=== PATIENT | female | born 1985 | race American Indian/Alaskan Native ===

== ENCOUNTER 2017-02-10 09:33 | Emergency (ER) | payer BC ==
[2017-02-10 09:41] VITALS: BMI 30.6
[2017-02-10 09:46] VITALS: BP 126/80; PULSE 78; RESP 18; TEMP 98.5; O2SAT 98
--- NOTE | 2017-02-10 09:55 | ED PDOC ---
Arrival/HPI - General Historian: Patient - History of Present Illness Time/Duration: Other (last night) Symptom Onset: Gradual Symptom Course: Improving Quality: Other (no pain) - General Chief Complaint: Abnormal Skin Integrity Time Seen by Provider: 02/10/17 09:45 - History of Present Illness Narrative History of Present Illness (Text): 02/10/17 09:51 31-year-old female presents today with swelling of the left lower lip since last night. Patient states she noticed that the lip was swelling last night and she went to sleep thinking that it would get better. Patient states when she woke up the lip was still swollen. Patient states just prior to arrival the swelling in the lips started to go down. Patient denies difficulty breathing or swallowing. Denies trismus or drooling. Denies fevers or chills. She denies new soaps lotions or detergents per fumes or medications. Patient states she did not eat anything out of the ordinary. Patient denies rash. She denies trauma or injury. No other complaints. no medications have been taken at home. (Anamaria Warner) Past Medical History - Provider Review Nursing Documentation Reviewed: Yes - Travel History Have you recently traveled outside [place] w/in the past 3 mons?: No - Psychiatric Hx Substance Use: No Family/Social History - Physician Review Nursing Documentation Reviewed: Yes Family/Social History: Unknown Family HX Smoking Status: Never Smoked Hx Alcohol Use: No Hx Substance Use: No Allergies/Home Meds Allergies/Adverse Reactions: Allergies No Known Allergies Allergy (Verified 02/10/17 09:41) Review of Systems - Review of Systems Constitutional: absent: Fatigue, Fevers Respiratory: absent: SOB, Cough Cardiovascular: absent: Chest Pain, Palpitations Gastrointestinal: absent: Abdominal Pain, Nausea, Vomiting Musculoskeletal: absent: Arthralgias Skin: Rash, Other (left sided lower lip swelling) Neurological: absent: Headache, Dizziness Physical Exam Vital Signs Reviewed: Yes Temperature: Afebrile Blood Pressure: Normal Pulse: Regular Respiratory Rate: Normal Appearance: Positive for: Well-Appearing, Non-Toxic, Comfortable Pain Distress: None Mental Status: Positive for: Alert and Oriented X 3 - Systems Exam Head: Present: Atraumatic, Swelling (+ small amount of edema noted to the left lower lip; no erythema; non tender. no rash) Pupils: Present: PERRL Extroacular Muscles: Present: EOMI Conjunctiva: Present: Normal Mouth: Present: Moist Mucous Membranes Pharnyx: Present: Normal. No: ERYTHEMA, EXUDATE, TONSILS ENLARGED, Peritonsilar Swelling, Uvular Deviation, Muffled/Hoarse Voice, Strider, Soft Palate/Uvular Edema Nose (External): Present: Atraumatic Nose (Internal): Present: Normal Inspection Neck: Present: Normal Range of Motion Respiratory/Chest: Present: Clear to Auscultation, Good Air Exchange. No: Respiratory Distress, Accessory Muscle Use, Wheezes, Retracting, Rhonchi, Tachypneic Cardiovascular: Present: Regular Rate and Rhythm, Normal S1, S2. No: Murmurs Neurological: Present: GCS=15 Skin: Present: Warm, Dry, Normal Color. No: Rashes Psychiatric: Present: Alert, Oriented x 3 Vital Signs Temp Pulse Resp BP Pulse Ox 02/10/17 09:41 98.5 F 78 18 126/80 98 Medical Decision Making ED Course and Treatment: 02/10/17 09:54 Patient is nontoxic well-appearing in no distress with stable vital signs Lungs are clear to auscultation bilaterally there is no wheezing noted. The airway is patent. There is minimal swelling to the left side of the lower lip. Benadryl 50 by mouth Prednisone 60 by mouth Pepcid 20 mg by mouth pt with resolving left sided lower lip swelling; no signs of airway compromise. will d/c home to f/u with PMD and senior warehouse clerk/executive administrative asst. I advised taking Benadryl every 6 hours as needed. as well as prednisone daily x4 days. Patient was advised to take Pepcid daily. Patient was advised to follow -up with a executive administrative asst/senior warehouse clerk. Advised patient to follow up with primary care physician within the next 2 days and return if symptoms worsen persist or if new symptoms develop Patient verbalizes understanding of discharge instructions and need for immediate followup. Impression :Allergic reaction Benadryl every 6 hours as needed for itch Prednisone once daily x4 days Pepcid one tablet daily Follow up with the primary care physician tomorrow. Follow-up with the executive administrative asst/senior warehouse clerk within the next 2 days. Return if symptoms worsen persist or if new symptoms develop: Shortness of breath, feeling of throat closing, difficulty speaking or any other concerning symptoms develop (Azoia,Anamaria T) I was available for consultation during PA evaluation. The chart was reviewed by me, and I agree with disposition. The documented history was done by the physician visual education teacher. The documented physical exam was done by the physician visual education teacher. The documented procedures were done by the physician visual education teacher. (Shashi Red) - Medication Orders Current Medication Orders: Discontinued Medications Diphenhydramine HCl (Benadryl) 50 mg PO ONCE ONE Stop: 02/10/17 09:46 Famotidine (Pepcid) 20 mg PO STAT STA Stop: 02/10/17 09:46 Prednisone (Prednisone Tab) 60 mg PO STAT ONE Stop: 02/10/17 09:46 Disposition/Present on Arrival - Present on Arrival Any Indicators Present on Arrival: No History of DVT/PE: No History of Uncontrolled Diabetes: No Urinary Catheter: No History of Decub. Ulcer: No History Surgical Site Infection Following: None - Disposition Have Diagnosis and Disposition been Completed?: Yes Disposition Time: 09:56 Patient Plan: Discharge - Disposition Diagnosis: Allergic reaction, Swollen lip Disposition: HOME/ ROUTINE Condition: GOOD Discharge Instructions (ExitCare): General Allergic Reaction (ED) Additional Instructions: Benadryl every 6 hours as needed for itch Prednisone once daily x4 days Pepcid one tablet daily Follow up with the primary care physician tomorrow. Follow-up with the executive administrative asst/senior warehouse clerk within the next 2 days. Return if symptoms worsen persist or if new symptoms develop: Shortness of breath, feeling of throat closing, difficulty speaking or any other concerning symptoms develop Prescriptions: DiphenhydrAMINE [Benadryl] 25 mg PO Q6H #20 cap Famotidine [Pepcid] 20 mg PO DAILY #30 tab predniSONE [predniSONE Tab] 3 tab PO DAILY #12 tab Referrals: Rosalina Kaufman MD [Staff Provider] - Follow up with primary Shine Andrade MD [Staff Provider] - Follow up with primary Anmol Hicks MD [Staff Provider] - Follow up with primary Forms: [facility] ([place]), WORK NOTE
== END 2017-02-10 10:24 | disposition home or self-care (01) ==
LOC: ED 09:33
DX: T78.40XA Allergy, unspecified, initial encounter (principal); X58.XXXA Exposure to other specified factors, initial encounter; R22.0 Localized swelling, mass and lump, head

== ENCOUNTER 2017-05-28 19:21 | Emergency (ER) | payer BC ==
[2017-05-28 19:21] VITALS: BMI 30.6
[2017-05-28 20:25] VITALS: TEMP 98.2; O2SAT 98
[2017-05-28 21:07] LABS: BASO # 0.01 K/mm3 (0.0-2.0); BASO % 0.2 % (0.0-3.0); EOS # 0.2 (0.0-0.7); EOS % 2.6 % (1.5-5.0); GRAN % 60.2 % (50.0-68.0); HEMOGLOBIN 13.3 g/dL (12.0-16.0); LYMPH % 30.4 % (22.0-35.0); MEAN CELL VOLUME 86.8 fl (80.0-105.0); MEAN CORPUSCULAR HEMOGLOBIN 30.9 pg (25.0-35.0); MEAN CORPUSCULAR HGB CONC 35.6 g/dl (31.0-37.0); MEAN PLATELET VOLUME 9.8 fl (7.0-11.0); MONO # 0.4 (0.1-0.6); MONO % 6.6 % (1.0-6.0); RBC 4.31 10^6/uL (3.5-6.1); RED CELL DISTRIBUTION WIDTH 13.7 % (11.5-14.5); WHITE BLOOD COUNT 6.6 10^3/ul (4.5-11.0)
[2017-05-28 21:09] LABS: URINE BILIRUBIN NEGATIVE (NEGATIVE); URINE BLOOD NEGATIVE (NEGATIVE); URINE GLUCOSE (UA) NEGATIVE (NEGATIVE); URINE LEUKOCYTE ESTERASE NEGATIVE Leu/uL (NEGATIVE); URINE NITRATE NEGATIVE (NEGATIVE); URINE PROTEIN NEGATIVE mg/dL (<30 mg/dL); URINE UROBILINOGEN 0.2 E.U./dL (<1 E.U./dL)
[2017-05-28 21:10] LABS: URINE APPEARANCE CLEAR (CLEAR); URINE COLOR YELLOW (YELLOW)
[2017-05-28 21:15] LABS: HCG,QUALITATIVE URINE NEGATIVE (NEGATIVE)
[2017-05-28 21:25] LABS: ALB/GLOB RATIO 1.3 (1.1-1.8); ALBUMIN 4.2 g/dL (3.0-4.8); ALT/SGPT 32 U/L (7-56); AST/SGOT 26 U/L (14-36); BLOOD UREA NITROGEN 11 mg/dL (7-21); CALCIUM 9.3 mg/dL (8.4-10.5); GFR AFRICAN-AMERICAN > 60; GFR NON-AFRICAN AMERICAN > 60
--- NOTE | 2017-05-28 21:26 | ED PDOC ---
Arrival/HPI - General Chief Complaint: Abdominal Pain Time Seen by Provider: 05/28/17 20:34 Historian: Patient - History of Present Illness Narrative History of Present Illness (Text): 05/28/17 20:50 Skyla Benites is a 31 year old female who presents to the Emergency department complaining of RLQ abdominal pain radiating to back. Patient reports associated nausea. Patient denies any fever, chills, chest pain, shortness of breath, vomiting, diarrhea, urinary symptoms, back pain, neck pain, headache, dizziness , or any other complaints. Symptom Onset: Gradual Symptom Course: Unchanged Activities at Onset: Light Context: Home Past Medical History - Provider Review Nursing Documentation Reviewed: Yes - Cardiac Hx Cardiac Disorders: No - Pulmonary Hx Respiratory Disorders: No - Neurological Hx Neurological Disorder: No - HEENT Hx HEENT Disorder: No - Renal Hx Renal Disorder: No - Endocrine/Metabolic Hx Endocrine Disorders: No - Hematological/Oncological Hx Blood Disorders: No - Integumentary Hx Dermatological Disorder: No - Musculoskeletal/Rheumatological Hx Musculoskeletal Disorders: No - Gastrointestinal Hx Gastrointestinal Disorders: No - Genitourinary/Gynecological Hx Genitourinary Disorders: Yes Other/Comment: PCOS - Psychiatric Hx Psychophysiologic Disorder: No Hx Substance Use: No Family/Social History - Physician Review Nursing Documentation Reviewed: Yes Family/Social History: Unknown Family HX Smoking Status: Never Smoked Hx Alcohol Use: No Hx Substance Use: No Allergies/Home Meds Allergies/Adverse Reactions: Allergies No Known Allergies Allergy (Verified 05/28/17 19:56) Home Medications: Home Meds Medication Instructions Recorded Confirmed No Known Home Med 05/28/17 05/28/17 Review of Systems - Physician Review All systems were reviewed & negative as marked: Yes - Review of Systems Constitutional: Normal. absent: Fevers Eyes: Normal ENT: Normal Respiratory: Normal. absent: SOB, Cough Cardiovascular: Normal. absent: Chest Pain Gastrointestinal: Abdominal Pain, Nausea. absent: Diarrhea, Vomiting Genitourinary Female: Normal. absent: Dysuria, Frequency, Hematuria, Urine Output Changes Musculoskeletal: Back Pain. absent: Neck Pain Skin: Normal. absent: Rash Neurological: Normal. absent: Headache, Dizziness Endocrine: Normal Hemo/Lymphatic: Normal Psychiatric: Normal Physical Exam Vital Signs Reviewed: Yes Vital Signs Temp Pulse Resp BP Pulse Ox 05/28/17 22:15 82 18 126/80 98 05/28/17 19:49 98.2 F 65 17 125/79 98 Temperature: Afebrile Blood Pressure: Normal Pulse: Regular Respiratory Rate: Normal Appearance: Positive for: Well-Appearing, Non-Toxic, Comfortable Pain Distress: None Mental Status: Positive for: Alert and Oriented X 3 - Systems Exam Head: Present: Atraumatic, Normocephalic Pupils: Present: PERRL Extroacular Muscles: Present: EOMI Conjunctiva: Present: Normal Mouth: Present: Moist Mucous Membranes Neck: Present: Normal Range of Motion Respiratory/Chest: Present: Clear to Auscultation, Good Air Exchange. No: Respiratory Distress, Accessory Muscle Use Cardiovascular: Present: Regular Rate and Rhythm, Normal S1, S2. No: Murmurs Abdomen: Present: Normal Bowel Sounds. No: Tenderness, Distention, Peritoneal Signs Back: Present: Normal Inspection Upper Extremity: Present: Normal Inspection. No: Cyanosis, Edema Lower Extremity: Present: Normal Inspection. No: Edema Neurological: Present: GCS=15, CN II-XII Intact, Speech Normal Skin: Present: Warm, Dry, Normal Color. No: Rashes Psychiatric: Present: Alert, Oriented x 3, Normal Insight, Normal Concentration Medical Decision Making ED Course and Treatment: 05/28/17 20:50 Impression: 31 year old female complaining of RLQ pain radiating to back and nausea. Plan: -- Labs -- UA -- Reassess and disposition Progress Notes: 05/28/17 23:57 On re-evaluation, patient feels better and is in no acute distress. I have discussed the results and plan with the patient, refusing ct who expresses understanding. Patient in agreement with plan to be discharged home. Patient is stable for discharge. Patient was instructed to follow up with physician or return if symptoms worsen or new concerning symptoms arise. 05/31/17 20:19 - Lab Interpretations Lab Results: 05/28/17 20:51 05/28/17 20:51 Lab Results 05/28/17 20:51: Urine Color Yellow, Urine Appearance Clear, Urine pH 6.0, Ur Specific [place] 1.010, Urine Protein Negative, Urine Glucose (UA) Negative, Urine Ketones Negative, Urine Blood Negative, Urine Nitrate Negative, Urine Bilirubin Negative, Urine Urobilinogen 0.2, Ur Leukocyte Esterase Negative, Urine HCG, Qual Negative 05/28/17 20:51: Sodium 134, Potassium 3.9, Chloride 99, Carbon Dioxide 26, Anion Gap 13, BUN 11, Creatinine 0.8, Est GFR ( Amer) > 60, Est GFR (Non- Af Amer) > 60, Random Glucose 92, Calcium 9.3, Total Bilirubin 0.3, AST 26, ALT 32, Alkaline Phosphatase 54, Total Protein 7.6, Albumin 4.2, Globulin 3.3, Albumin/Globulin Ratio 1.3 05/28/17 20:51: WBC 6.6, RBC 4.31, Hgb 13.3, Hct 37.4, MCV 86.8, MCH 30.9, MCHC 35.6, RDW 13.7, Plt Count 276, MPV 9.8, Gran % 60.2, Lymph % (Auto) 30.4, [place] % (Auto) 6.6 H, Eos % (Auto) 2.6, Baso % (Auto) 0.2, Gran # 4.00, Lymph # 2.0, [place] # 0.4, Eos # 0.2, Baso # 0.01 I have reviewed the lab results: Yes - Scribe Statement The provider has reviewed the documentation as recorded by the Scribwade Joshua All medical record entries made by the Scribe were at my direction and personally dictated by me. I have reviewed the chart and agree that the record accurately reflects my personal performance of the history, physical exam, medical decision making, and the department course for this patient. I have also personally directed, reviewed, and agree with the discharge instructions and disposition. Disposition/Present on Arrival - Present on Arrival Any Indicators Present on Arrival: No History of DVT/PE: No History of Uncontrolled Diabetes: No Urinary Catheter: No History of Decub. Ulcer: No History Surgical Site Infection Following: None - Disposition Have Diagnosis and Disposition been Completed?: Yes Diagnosis: Abdominal pain Disposition: HOME/ ROUTINE Disposition Time: 23:57 Condition: GOOD Discharge Instructions (ExitCare): Acute Abdominal Pain (ED) Forms: [employer] (Lithuanian)
[2017-05-29 00:51] VITALS: BP 126/80; PULSE 82; RESP 18
== END 2017-05-28 23:49 | disposition home or self-care (01) ==
LOC: ED 19:21
DX: R10.9 Unspecified abdominal pain (principal)

== ENCOUNTER 2018-04-04 08:14 | Emergency (ER) | payer BC ==
[2018-04-04 08:14] VITALS: BMI 30.6
--- NOTE | 2018-04-04 08:31 | ED PDOC ---
Arrival/HPI - General Chief Complaint: Female Genitourinary Time Seen by Provider: 04/04/18 08:15 Historian: Patient - History of Present Illness Narrative History of Present Illness (Text): 04/04/18 08:30 A 32 year old female, whose past medical history includes polycystic ovaries, presents to the emergency department complaining of hematuria and lower abdominal pain since earlier this morning. Patient reports has been experiencing cramping pain since this morning and has had this pain before. Patient denies any fever, chills, shortness of breath, or any other complaints. Time/Duration: 1-3 hours (earlier this morning) Symptom Onset: Gradual Symptom Course: Unchanged Activities at Onset: Light Context: Home Past Medical History - Provider Review Nursing Documentation Reviewed: Yes - Cardiac Hx Cardiac Disorders: No - Pulmonary Hx Respiratory Disorders: No - Neurological Hx Neurological Disorder: No - HEENT Hx HEENT Disorder: No - Renal Hx Renal Disorder: No - Endocrine/Metabolic Hx Endocrine Disorders: No - Hematological/Oncological Hx Blood Disorders: No - Integumentary Hx Dermatological Disorder: No - Musculoskeletal/Rheumatological Hx Musculoskeletal Disorders: No - Gastrointestinal Hx Gastrointestinal Disorders: No - Genitourinary/Gynecological Hx Genitourinary Disorders: Yes Other/Comment: PCOS - Psychiatric Hx Psychophysiologic Disorder: No Hx Substance Use: No Family/Social History - Physician Review Nursing Documentation Reviewed: Yes Family/Social History: No Known Family HX Smoking Status: Never Smoked Hx Alcohol Use: No Hx Substance Use: No Allergies/Home Meds Allergies/Adverse Reactions: Allergies No Known Allergies Allergy (Verified 04/04/18 08:23) Review of Systems - Physician Review All systems were reviewed & negative as marked: Yes - Review of Systems Constitutional: absent: Fevers Respiratory: absent: SOB Physical Exam - Physical Exam Narrative Physical Exam (Text): 04/04/18 08:31 Constitutional: No acute distress. Head: Normocephalic. Atraumatic. Eyes: PERRL. ENT: Moist mucous membranes. Cardiovascular: Regular rate. Respiratory: Clear to auscultation bilaterally. GI: Suprapubic tenderness. Back: No CVA tenderness. Musculoskeletal: No tenderness or swelling of extremities. Skin: No rash. Neurologic: Alert, no focal deficit. Vital Signs Reviewed: Yes Vital Signs Temp Pulse Resp BP Pulse Ox 04/04/18 08:22 98 F 87 18 138/66 100 Temperature: Afebrile Blood Pressure: Normal Pulse: Regular Respiratory Rate: Normal Appearance: Positive for: Well-Appearing, Non-Toxic Pain Distress: Moderate Medical Decision Making ED Course and Treatment: 04/04/18 08:33 Impression:32 year old female with hematuria and lower abdominal pain. Plan: -- Urine culture -- HCG urine stat -- Urinalysis -- Reassess and disposition Prior Visits: Notes and results from previous visits were reviewed. Progress Notes: UA positive. Antibiotics administered and prescribed. Culture sent. F/u PMD, return to ED for worsening pain, fever, dyspnea, vomiting, back pain, or any other problem. - Scribe Statement The provider has reviewed the documentation as recorded by the Huongibwade Mckee All medical record entries made by the Scribe were at my direction and personall y dictated by me. I have reviewed the chart and agree that the record accurately reflects my personal performance of the history, physical exam, medical decision making, and the department course for this patient. I have also personally directed, reviewed, and agree with the discharge instructions and disposition. Disposition/Present on Arrival - Present on Arrival Any Indicators Present on Arrival: No History of DVT/PE: No History of Uncontrolled Diabetes: No Urinary Catheter: No History of Decub. Ulcer: No History Surgical Site Infection Following: None - Disposition Have Diagnosis and Disposition been Completed?: Yes Diagnosis: UTI (urinary tract infection) Disposition: HOME/ ROUTINE Disposition Time: 09:47 Patient Plan: Discharge Condition: STABLE Discharge Instructions (ExitCare): Urinary Tract Infections in Adults Prescriptions: levoFLOXacin [Levaquin] 1 tab PO DAILY #6 tab RX: Phenazopyridine [Pyridium] 1 tab PO Q8 #6 tab Forms: [facility] (Lao), WORK NOTE
[2018-04-04 08:46] LABS: URINE BILIRUBIN NEGATIVE (NEGATIVE); URINE BLOOD LARGE (NEGATIVE); URINE GLUCOSE (UA) NEGATIVE (NEGATIVE); URINE LEUKOCYTE ESTERASE MODERATE Leu/uL (NEGATIVE); URINE PROTEIN NEGATIVE mg/dL (<30 mg/dL); URINE UROBILINOGEN 0.2 E.U./dL (<1 E.U./dL)
[2018-04-04 08:47] LABS: URINE COLOR YELLOW (YELLOW)
[2018-04-04 08:48] LABS: URINE APPEARANCE CLEAR (CLEAR)
[2018-04-04 09:00] LABS: HCG,QUALITATIVE URINE NEGATIVE (NEGATIVE)
[2018-04-04 09:04] LABS: URINE AMORPHOUS SEDIMENT TRACE; URINE BACTERIA MANY (NEG); URINE RBC 25 - 30 /hpf (0-2); URINE WBC 20 - 25 /hpf (0-6)
[2018-04-04] MEDS ORDERED: levoFLOXacin 750 MG TAB PO STA (09:46)
[2018-04-04 10:10] VITALS: BP 127/62; RESP 16; TEMP 98.2
[2018-04-04 10:12] VITALS: PULSE 71; O2SAT 99
== END 2018-04-04 10:10 | disposition home or self-care (01) ==
LOC: ED 08:14
DX: N39.0 Urinary tract infection, site not specified (principal); E28.2 Polycystic ovarian syndrome

== ENCOUNTER 2018-07-04 18:06 | Emergency (ER) | payer BC ==
[2018-07-04 18:33] VITALS: RESP 18; BMI 27.4
--- NOTE | 2018-07-04 18:50 | ED PDOC ---
Arrival/HPI <Adonis Lopez - Last Filed: 07/04/18 20:46> - General Historian: Patient - History of Present Illness Narrative History of Present Illness (Text): 07/04/18 18:46 A 32 year old female, whose past medical history includes polycystic ovaries, presents to the emergency department complaining of RUQ pain for the past 2-3 weeks. Patient reports when symptom first began, it was only intermittent and she went to be seen at an Urgent Care, where she was told she either had gas pain or gallstones. She was instructed to monitor her pain and should it worsen, to go to the ER for evaluation. Today, patient notes after eating lunch, the pain started and has been became constant, non-radiating. Patient denies any fever, nausea, vomiting, diarrhea, any urinary symptoms, back pain, chest pain, shortness of breath, or any other complaints at this time. No PMD <Suki Mack PA-C - Last Filed: 07/04/18 21:50> - General Chief Complaint: Abdominal Pain Time Seen by Provider: 07/04/18 18:34 Past Medical History - Provider Review Nursing Documentation Reviewed: Yes - Infectious Disease Hx of Infectious Diseases: None - Cardiac Hx Cardiac Disorders: No - Pulmonary Hx Respiratory Disorders: No - Neurological Hx Neurological Disorder: No - HEENT Hx HEENT Disorder: No - Renal Hx Renal Disorder: No - Endocrine/Metabolic Hx Endocrine Disorders: No - Hematological/Oncological Hx Blood Disorders: No - Integumentary Hx Dermatological Disorder: No - Musculoskeletal/Rheumatological Hx Musculoskeletal Disorders: No - Gastrointestinal Hx Gastrointestinal Disorders: No - Genitourinary/Gynecological Hx Genitourinary Disorders: Yes Other/Comment: PCOS - Psychiatric Hx Psychophysiologic Disorder: No Hx Substance Use: No <Suki Mack PA-C - Last Filed: 07/04/18 21:50> Family/Social History - Physician Review Nursing Documentation Reviewed: Yes Family/Social History: No Known Family HX Smoking Status: Never Smoked Hx Alcohol Use: No Hx Substance Use: No <Suki Mack PA-C - Last Filed: 07/04/18 21:50> Allergies/Home Meds <Adonis Lopez - Last Filed: 07/04/18 20:46> <Suki Mack PA-C - Last Filed: 07/04/18 21:50> Allergies/Adverse Reactions: Allergies No Known Allergies Allergy (Verified 07/04/18 18:22) Review of Systems - Physician Review All systems were reviewed & negative as marked: Yes - Review of Systems Constitutional: absent: Fevers Respiratory: absent: SOB Cardiovascular: absent: Chest Pain Gastrointestinal: Abdominal Pain (RUQ). absent: Diarrhea, Nausea, Vomiting Genitourinary Female: absent: Dysuria, Frequency, Hematuria, Urine Output Changes <Suki Mack PA-C - Last Filed: 07/04/18 21:50> Physical Exam Vital Signs Pulse Resp BP Pulse Ox 07/04/18 18:22 98 H 18 120/86 99 <Adonis Lopez - Last Filed: 07/04/18 20:46> Vital Signs Reviewed: Yes Vital Signs Pulse Resp BP Pulse Ox 07/04/18 18:22 98 H 18 120/86 99 Blood Pressure: Normal Pulse: Regular Respiratory Rate: Normal Appearance: Positive for: Well-Appearing, Non-Toxic, Comfortable Pain Distress: Mild Mental Status: Positive for: Alert and Oriented X 3 - Systems Exam Head: Present: Atraumatic, Normocephalic Pupils: Present: PERRL Extroacular Muscles: Present: EOMI Conjunctiva: Present: Normal Mouth: Present: Moist Mucous Membranes Respiratory/Chest: Present: Clear to Auscultation, Good Air Exchange. No: Respiratory Distress, Accessory Muscle Use Cardiovascular: Present: Regular Rate and Rhythm, Normal S1, S2. No: Murmurs Abdomen: Present: Tenderness (RUQ). No: Distention, Peritoneal Signs, Other (negative Bajwa's sign) Upper Extremity: Present: Normal Inspection. No: Cyanosis, Edema Lower Extremity: Present: Normal Inspection. No: Edema Neurological: Present: GCS=15, CN II-XII Intact, Speech Normal Skin: Present: Warm, Dry, Normal Color. No: Rashes Psychiatric: Present: Alert, Oriented x 3, Normal Insight, Normal Concentration <Suki Mack PA-C - Last Filed: 07/04/18 21:50> Medical Decision Making - Lab Interpretations Lab Results: PT 14.1 SECONDS (9.4-12.5) H 07/04/18 19:24 INR 1.27 02/23/19 19:24 APTT 30.7 Seconds (26.9-38.3) 07/04/18 19:24 Total Bilirubin 0.4 mg/dL (0.2-1.3) 07/04/18 19:24 AST 39 U/L (14-36) H D 07/04/18 19:24 ALT 6 U/L (7-56) L 07/04/18 19:24 Alkaline Phosphatase 63 U/L (38-126) 07/04/18 19:24 Total Protein 8.0 g/dL (5.8-8.3) 07/04/18 19:24 Albumin 4.1 g/dL (3.0-4.8) 07/04/18 19:24 Globulin 3.9 gm/dL 07/04/18 19:24 Albumin/Globulin Ratio 1.1 (1.1-1.8) 07/04/18 19:24 Lipase 87 U/L (23-300) 07/04/18 19:24 Urine Color Yellow (YELLOW) 07/04/18 19:17 Urine Appearance Clear (CLEAR) 07/04/18 19:17 Urine pH 6.0 (4.7-8.0) 07/04/18 19:17 Ur Specific [place] 1.020 (1.005-1.035) 07/04/18 19:17 Urine Protein Negative mg/dL (<30 mg/dL) 07/04/18 19:17 Urine Glucose (UA) Negative mg/dL (NEGATIVE) 07/04/18 19:17 Urine Ketones Negative mg/dL (NEGATIVE) 07/04/18 19:17 Urine Blood Trace-intact (NEGATIVE) H 07/04/18 19:17 Urine Nitrate Negative (NEGATIVE) 07/04/18 19:17 Urine Bilirubin Negative (NEGATIVE) 07/04/18 19:17 Urine Urobilinogen 0.2 E.U./dL (<1 E.U./dL) 07/04/18 19:17 Ur Leukocyte Esterase [place]/uL (NEGATIVE) H 07/04/18 19:17 Urine RBC 0 - 2 /hpf (0-2) 07/04/18 19:17 Urine WBC 2 - 5 /hpf (0-6) 07/04/18 19:17 Ur Epithelial Cells 1 - 3 /hpf (0-5) 07/04/18 19:17 - RAD Interpretation Radiology Orders: 07/04/18 18:44 ABDOMEN COMPLETE [US] Stat - Medication Orders Current Medication Orders: Discontinued Medications Ketorolac Tromethamine (Toradol) 30 mg IVP STAT STA Stop: 07/04/18 18:45 Last Admin: 07/04/18 19:25 Dose: 30 mg MAR Pain Assessment Document 07/04/18 19:25 JOL (Rec: 07/04/18 19:51 JOL [facility] [id number]) Pain Reassessment Is this a pain reassessment? No Sleep Is patient sleeping during reassessment? No Presence of Pain Presence of Pain Yes Pain Scale Used Protocol: PSCALES Pain Scale Used Numeric Location Pain Location Body Site Abdomen IVP Administration Document 07/04/18 19:25 JOL (Rec: 07/04/18 19:51 JOL [facility] [id number]) Charges for Administration # of IVP Administrations 1 Ondansetron HCl (Zofran Inj) 4 mg IVP STAT STA Stop: 07/04/18 18:45 Last Admin: 07/04/18 19:25 Dose: 4 mg IVP Administration Document 07/04/18 19:25 JOL (Rec[facility]04[facility]18 [facility] Charges for Administration # of IVP Administrations 1 <Adonis Lopez - Last Filed: 07/04/18 20:46> ED Course and Treatment: 07/04/18 18:50 Impression: 32 year old female with RUQ pain. Plan: -- Abdominal Ultrasound -- Labs -- Urine Culture -- Urinalysis -- POC Urine Test -- Toradol -- Zofran -- Reassess and disposition Prior Visits: Notes and results from previous visits were reviewed. Patient was last seen in the emergency department on 04/04/2018 for hematuria and lower abdominal pain. Patient was discharged home. Progress Notes: 07/04/2018 19:22 [facility] [place] (-). Labs reviewed and wnl. 07/04/18 21:48 Abdominal Ultrasound IMPRESSION: Unremarkable right upper quadrant ultrasound. The study was technically limited due to bowel gas. Dictator: Fransico Swartz MD On re-evaluation, patient reports mild improvement of symptoms, denies any nausea or vomiting. On exam, patient remains AAOx3, in no acute distress. Abdomen soft, non-tender, repeat neuro exam shows no focal findings. Diagnostic results d/w the patient in great detail. Given simethacone 80 mg po and pepcid 20 mg IV. Based on history, exam and diagnostic results, plan will be for outpatient follow up. Patient instructed to follow-up with referral provided (given referral to a pmd and with GI) in 1-2 days without fail. Advised to take medication as prescribed. Return to the emergency room at any time for any new or worsening symptoms. Patient states she fully agrees with and understands discharge instructions. States that she agrees with the plan and disposition. Verbalized and repeated discharge instructions and plan. I have given the patient opportunity to ask any additional questions. - RAD Interpretation Narrative RAD Interpretations (Text): US Abdomen: LIVER: Within normal limits in size and echogenicity. No mass. GALLBLADDER: The gallbladder appears within normal limits. No gallbladder wall thickening or pericholecystic fluid. COMMON BILE DUCT: No dilation. PANCREAS: The distal pancreas is obscured by bowel gas. The visualized portion of the pancreas appears within normal limits. Evaluation was limited due to bowel gas. RIGHT KIDNEY: Unremarkable. Normal renal contours. No renal mass or calculus. No hydronephrosis. IMPRESSION: Unremarkable right upper quadrant ultrasound. The study was technically limited due to bowel gas. Electronically signed on Jul 04, 2018 7:22:19 PM EST by: Fransico Swartz M.D., Certified by [facility], Diagnostic Radiology Radiology Orders: 07/04/18 18:44 ABDOMEN COMPLETE [US] Stat Cutting Pressman: Radiologist - Medication Orders Current Medication Orders: Ketorolac Tromethamine (Toradol) 30 mg IVP STAT STA Stop: 07/04/18 18:45 Ondansetron HCl (Zofran Inj) 4 mg IVP STAT STA Stop: 07/04/18 18:45 <Suki Mack PA-C - Last Filed: 07/04/18 21:50> - PA / SPA COORDINATOR / Resident Statement JULIA has reviewed & agrees with the documentation as recorded. JULIA has examined the patient and agrees with the treatment plan. <Adonis Lopez - Last Filed: 07/04/18 20:46> - PA / SPA COORDINATOR / Resident Statement JULIA has reviewed & agrees with the documentation as recorded. - Scribe Statement The provider has reviewed the documentation as recorded by the Sheldon Jay Provider Scribe Attestation: All medical record entries made by the [place] were at my direction and personally dictated by me. I have reviewed the chart and agree that the record accurately reflects my personal performance of the history, physical exam, medical decision making, and the department course for this patient. I have also personally directed, reviewed, and agree with the discharge instructions and disposition. <Suki Mack PA-C - Last Filed: 07/04/18 21:50> Disposition/Present on Arrival <Adonis Lopez - Last Filed: 07/04/18 20:46> - Present on Arrival Any Indicators Present on Arrival: No History of DVT/PE: No History of Uncontrolled Diabetes: No Urinary Catheter: No History of Decub. Ulcer: No History Surgical Site Infection Following: None - Disposition Have Diagnosis and Disposition been Completed?: Yes Disposition Time: 21:45 Patient Plan: Discharge <Suki Mack PA-C - Last Filed: 07/04/18 21:50> - Disposition Diagnosis: Abdominal pain Disposition: HOME/ ROUTINE Patient Problems: Current Active Problems Problem Status Onset Abdominal pain Acute Condition: STABLE Discharge Instructions (ExitCare): Acute Abdomen (Belly Pain) Additional Instructions: Thank you for letting us take care of you today. You were treated for abdominal pain. The emergency medical care you received today was directed at your acute symptoms. If you were prescribed any medication, please fill it and take as directed. It may take several days for your symptoms to resolve. Return to the Emergency Department if your symptoms worsen, do not improve, or if you have any other problems. Please contact your doctor in 2 days for re-evaluation and follow up / or call one of the physicians/clinics you have been referred to that are listed on the Patient Visit Information form that is included in your discharge packet. Bring any paperwork you were given at discharge with you along with any medications you are taking to your follow up visit. Our treatment cannot replace ongoing medical care by a primary care provider (PCP) outside of the emergency department. Thank you for allowing the [facility] [employer] team to be part of your care today. If you had a urine culture test done : We will call you regarding any positive results If you had an US : A Radiologist will review the ED reading if any change in treatment is needed we will contact you. Prescriptions: Famotidine [Pepcid] 40 mg PO DAILY #30 tab Referrals: PCP,NO [Primary Care Provider] - Follow up with primary Forms: [employer] ([place]grin), WORK NOTE
[2018-07-04 20:08] LABS: URINE BILIRUBIN NEGATIVE (NEGATIVE); URINE BLOOD TRACE-INTACT (NEGATIVE); URINE GLUCOSE (UA) NEGATIVE (NEGATIVE); URINE LEUKOCYTE ESTERASE SMALL Leu/uL (NEGATIVE); URINE PROTEIN NEGATIVE mg/dL (<30 mg/dL); URINE UROBILINOGEN 0.2 E.U./dL (<1 E.U./dL)
[2018-07-04 20:09] LABS: BASO # 0.02 K/mm3 (0.0-2.0); BASO % 0.2 % (0.0-3.0); EOS # 0.2 (0.0-0.7); EOS % 2.3 % (1.5-5.0); LYMPH # 1.6 (1.2-3.4); MEAN CORPUSCULAR HEMOGLOBIN 29.5 pg (25.0-35.0); MEAN CORPUSCULAR HGB CONC 34.8 g/dl (31.0-37.0); MEAN PLATELET VOLUME 10.1 fl (7.0-11.0); MONO # 0.4 (0.1-0.6); MONO % 4.5 % (1.0-6.0); RBC 4.4 10^6/uL (3.5-6.1); RED CELL DISTRIBUTION WIDTH 12.9 % (11.5-14.5); WHITE BLOOD COUNT 8.2 10^3/uL (4.5-11.0)
[2018-07-04 20:10] LABS: URINE APPEARANCE CLEAR (CLEAR); URINE COLOR YELLOW (YELLOW)
[2018-07-04 20:14] LABS: URINE RBC 0 - 2 /hpf (0-2)
[2018-07-04 20:17] LABS: INR 1.27; PARTIAL THROMBOPLASTIN TIME 30.7 Seconds (26.9-38.3); PROTHROMBIN TIME 14.1 SECONDS (9.4-12.5)
[2018-07-04 20:23] LABS: ALB/GLOB RATIO 1.1 (1.1-1.8); ALBUMIN 4.1 g/dL (3.0-4.8); AST/SGOT 39 U/L (14-36); BLOOD UREA NITROGEN 11 mg/dL (7-21); CALCIUM 9.1 mg/dL (8.4-10.5); GFR NON-AFRICAN AMERICAN > 60; LIPASE 87 U/L (23-300)
[2018-07-04 20:40] LABS: ALT/SGPT 6 U/L (7-56)
[2018-07-04] MEDS ORDERED: Simethicone 80 mg Chewtab PO STA (21:45)
[2018-07-04 22:14] VITALS: BP 118/78; PULSE 86; O2SAT 98
--- NOTE | 2018-07-05 09:48 | US ---
Date of service: 07/04/2018 HISTORY: RUQ pain, r/o cholecystitis COMPARISON: None. TECHNIQUE: Grayscale imaging was performed. FINDINGS: LIVER: Measures 16.3 cm. Normal echogenicity of the liver parenchyma. No mass. No intrahepatic bile duct dilatation. GALLBLADDER: There are no gallstones, wall thickening or pericholecystic fluid. The sonographic Bajwa's sign is negative. COMMON BILE DUCT: Measures 5.3 mm. No stones. No dilatation. PANCREAS: Unremarkable as visualized. No mass. No ductal dilatation. RIGHT KIDNEY: Measures 10.3cm. Normal echogenicity. No calculus, mass, or hydronephrosis. LEFT KIDNEY: Measures 10.4cm. Normal echogenicity. No calculus, mass, or hydronephrosis. SPLEEN: Normal in size and contour. No mass. AORTA: No aneurysmal dilatation. IVC: Unremarkable. OTHER FINDINGS: None. IMPRESSION: No cholelithiasis or biliary dilatation. A preliminary report was provided by [employer]
== END 2018-07-04 22:05 | disposition home or self-care (01) ==
LOC: ED 18:06
DX: R10.11 Right upper quadrant pain (principal); E28.2 Polycystic ovarian syndrome
CPT/HCPCS: 76700; 80053; 81001; 81025; 83690; 83735; 85025; 85610; 85730; 87086; 96374; 96375; 99285; J1885; J2405